=== PATIENT | male | born 1945 | race Caucasian/White ===

== ENCOUNTER 2020-03-20 12:31 | Outpatient (CLI) | payer OTHER | END 2020-03-20 12:41 | disposition home or self-care (01) | LOC: TOM 12:31 | PROVIDERS: ATTEND Urology | DX: N20.0 Calculus of kidney (principal); K40.90 Unilateral inguinal hernia, without obstruction or gangrene, not specified as recurrent; R31.21 Asymptomatic microscopic hematuria; K80.80 Other cholelithiasis without obstruction ==

== ENCOUNTER 2023-10-05 06:37 | Emergency (ER) | payer OTHER ==
[~2023-10-05] VITALS: Ht 177.8 cm; Wt 72.6 kg
[2023-10-05] MEDS ORDERED: ATACAND16 MG PO (07:23)
[2023-10-05] MEDS ORDERED: 0.9 % SODIUM CHLORIDE 1,000 ML IV ONE (09:00)
[2023-10-05] MEDS ORDERED: FAMOtidine 10 MG/ML (4ML VIAL) IV ONE (09:00)
[2023-10-05] MEDS ORDERED: ONDANSETRON HCL 2 MG/ML VIAL IV ONE (09:00)
[2023-10-05] MEDS ORDERED: MORPHINE SULFATE 4 MG/ML VIAL IV ONE (09:00)
[2023-10-05] MEDS ORDERED: FAMOTIDINE/PF 20 MG/2 ML VIAL ONE (09:05)
[2023-10-05] MEDS ORDERED: ONDANSETRON HCL 2 MG/ML VIAL ONE (09:05)
[2023-10-05 09:51] LABS: AMYLASE 57 U/L (25-115); LIPASE 41 U/L (13-75)
[2023-10-05 09:55] LABS: PARTIAL THROMBOPLASTIN TIME 29.5 SECONDS (22.0-34.0); PROTHROMBIN TIME 10.5 SECONDS (9.0-11.5)
[2023-10-05 09:57] LABS: ALBUMIN 4.2 gm/dL (3.4-5.0); BILIRUBIN TOTAL 1.85 mg/dL (0.3-1.2); CALCIUM 9.8 mg/dL (8.5-10.1); CREATININE SERUM 1.65 mg/dL (0.70-1.30); GFR 40.55; GLOBULINA 4.7 G/DL (2.4-3.5); POTASSIUM 3.84 mEq/L (3.5-5.1); TOTAL PROTEIN 8.9 gm/dL (6.4-8.2)
[2023-10-05 10:04] LABS: HEMATOCRIT 50.7 % (39.0-48.0); HEMOGLOBIN 17.6 g/dL (13-16.00); MEAN CELL VOLUME 91.4 fL (80.0-100.00); MEAN CORPUSCULAR HEMOGLOBIN 31.6 pg (27.00-32.0); MEAN CORPUSCULAR HGB CONC 34.6 g/dl (32.0-36.0); PLATELET COUNT 220 K/uL (150-450); RED BLOOD COUNT 5.55 M/uL (4.00-6.00); RED CELL DISTRIBUTION WIDTH 13.4 % (11.5-14.5)
[2023-10-05 11:52] LABS: URINE APPEARANCE Clear; URINE BILIRRUBIN Negative (NEGATIVE); URINE BLOOD Trace; URINE COLOR Yellow; URINE GLUCOSE Negative (NEGATIVE); URINE KETONE 15 (NEGATIVE); URINE LEUKOCYTE Negative; URINE NITRATE Negative
[2023-10-05 11:56] LABS: URINE BACTERIA 12.5 uL (0.0-1933); URINE CAST 1.67 uL (0.0-1.40); URINE EPITHELIAL CELLS 7.2 uL (0.0-38.8); URINE RBC 13.1 uL (0.0-20.8); URINE WBC 7.7 uL (0.0-23.2)
[2023-10-05 12:32] LABS: URINE PROTEIN 100 (NEGATIVE)
[2023-10-05] MEDS ORDERED: KETO10TA2 PO (12:56)
== END 2023-10-05 13:07 | disposition home or self-care (01) ==
LOC: ER 06:38
PROVIDERS: General Practice
DX: R10.32 Left lower quadrant pain (principal); R10.9 Unspecified abdominal pain; I10 Essential (primary) hypertension; Z91.041 Radiographic dye allergy status
CPT/HCPCS: 36415; 74176; 96365; 99284; J2270; J2405; J3490; J7030

== ENCOUNTER 2023-11-04 13:21 | Outpatient (CLI) | payer OTHER ==
[~2023-11-04 13:21] MED LIST: ATACAND16 MG PO; KETO10TA2 PO
== END 2023-11-04 13:22 | disposition home or self-care (01) ==
LOC: RAD 13:21
PROVIDERS: ATTEND Urology
DX: N20.0 Calculus of kidney (principal)

== ENCOUNTER 2024-02-24 18:01 | Inpatient (IN) | payer OTHER ==
[~2024-02-24] VITALS: Ht 170.2 cm; Wt 81.6 kg
[2024-02-24 19:22] LABS: HEMATOCRIT 46.4 % (39.0-48.0); HEMOGLOBIN 15.8 g/dL (13-16.00); MEAN CELL VOLUME 90.2 fL (80.0-100.00); MEAN CORPUSCULAR HEMOGLOBIN 30.8 pg (27.00-32.0); MEAN CORPUSCULAR HGB CONC 34.1 g/dl (32.0-36.0); PLATELET COUNT 236 K/uL (150-450); RED BLOOD COUNT 5.14 M/uL (4.00-6.00); RED CELL DISTRIBUTION WIDTH 14.6 % (11.5-14.5)
[2024-02-24 19:28] LABS: INR 1.11; PARTIAL THROMBOPLASTIN TIME 29.4 SECONDS (22.0-34.0)
[2024-02-24 20:05] LABS: URIC ACID 12.4 mg/dL (3.5-8.5)
[2024-02-24 20:10] LABS: CALCIUM 9.1 mg/dL (8.5-10.1); CHOL HDL RATIO 2.5 (0-5.0); CREATININE SERUM 2.14 mg/dL (0.70-1.30); GFR 30.04; MAGNESIUM 2.4 mg/dL (1.8-2.4); POTASSIUM 4.77 mEq/L (3.5-5.1)
[2024-02-24] MEDS ORDERED: CEFTRIAXONE SODIUM 1,000 MG VIAL IV ONE (20:15)
[2024-02-24 20:51] LABS: DIGOXIN 0.3 ng/ml (0.8-2.0)
[2024-02-24] MEDS ORDERED: LEVALBUTEROL HCL 1.25 MG/3 ML SOLUTION IH SCH (22:30)
[2024-02-24] MEDS ORDERED: 0.9 % SODIUM CHLORIDE 1,000 ML IV SCH (22:30)
[2024-02-24] MEDS ORDERED: 0.9 % SODIUM CHLORIDE 500 ML IV ONE (22:45)
[2024-02-24] MEDS ORDERED: ACETAMINOPHEN 500 MG GEL..CAP PO PRN (22:45)
[2024-02-24] MEDS ORDERED: ONDANSETRON HCL 4 MG in 0.9 % SODIUM CHLORIDE 50 ML IV PRN (22:45)
[2024-02-25] VITALS (11 sets, daily range): BP systolic 117–162; BP diastolic 62–94; O2SAT 86–97
[2024-02-25] MEDS ORDERED: IPRATROPIUM BROMIDE 0.5 MG/2.5 ML AMPUL.NEB IH SCH
[2024-02-25] MEDS ORDERED: PIPERACILLIN/TAZOBACTAM SODIUM 2.25 GM in DEXTROSE 5 % IN WATER 50 ML IV SCH
[2024-02-25] MEDS ORDERED: DIPHENHYDRAMINE HCL 50 MG/ML VIAL 1ML IM ONE (00:15)
[2024-02-25] MEDS ORDERED: LEVALBUTEROL HCL 1.25 MG/3 ML SOLUTION IH ONE ×2 (02:23→10:28)
[2024-02-25] MEDS ORDERED: IPRATROPIUM BROMIDE 0.5 MG/2.5 ML AMPUL.NEB IH ONE (02:24)
[2024-02-25] MEDS ORDERED: ENOXAPARIN SODIUM 40 MG/0.4 ML SYRINGE SUBCUTANEO SCH (09:00)
[2024-02-25] MEDS ORDERED: PANTOPRAZOLE SODIUM 40 MG/VIAL VIAL IV SCH (09:00)
[2024-02-25 12:55] LABS: HEMATOCRIT 46.1 % (39.0-48.0); HEMOGLOBIN 15.9 g/dL (13-16.00); MEAN CELL VOLUME 90.1 fL (80.0-100.00); MEAN CORPUSCULAR HEMOGLOBIN 31.2 pg (27.00-32.0); MEAN CORPUSCULAR HGB CONC 34.6 g/dl (32.0-36.0); PLATELET COUNT 188 K/uL (150-450); RED BLOOD COUNT 5.11 M/uL (4.00-6.00); RED CELL DISTRIBUTION WIDTH 14.6 % (11.5-14.5)
[2024-02-25 13:28] LABS: ALBUMIN 3.2 gm/dL (3.4-5.0); BILIRUBIN TOTAL 0.68 mg/dL (0.3-1.2); CALCIUM 9.1 mg/dL (8.5-10.1); CREATININE SERUM 1.84 mg/dL (0.70-1.30); GFR 35.75; GLOBULINA 4.8 G/DL (2.4-3.5); POTASSIUM 3.59 mEq/L (3.5-5.1)
[2024-02-25] MEDS ORDERED: CEFTRIAXONE SODIUM 1,000 MG VIAL ONE (16:12)
[2024-02-25] MEDS ORDERED: AZITHROMYCIN 500 MG VIAL IV SCH (17:00)
[2024-02-25] MEDS ORDERED: CEFTRIAXONE SODIUM 1,000 MG in 0.9 % SODIUM CHLORIDE 100 ML IV SCH (17:00)
[2024-02-25 19:13] LABS: URINE APPEARANCE Cloudy; URINE BILIRRUBIN Negative (NEGATIVE); URINE BLOOD Large; URINE COLOR Yellow; URINE KETONE Negative (NEGATIVE); URINE LEUKOCYTE Moderate; URINE NITRATE Positive; URINE UROBILINOGEN 0.2 E.U./dl
[2024-02-25 19:18] LABS: URINE BACTERIA 308.4 uL (0.0-1933); URINE EPITHELIAL CELLS 66.6 uL (0.0-38.8); URINE RBC 85.5 uL (0.0-20.8); URINE WBC 269.7 uL (0.0-23.2)
[2024-02-25 19:27] LABS: URINE GLUCOSE 100 MG/DL (NEGATIVE); URINE PROTEIN 100 (NEGATIVE)
[2024-02-26] VITALS (7 sets, daily range): BP systolic 116–151; BP diastolic 76–93; O2SAT 89–99
[2024-02-26 06:45] LABS: HEMOGLOBIN 14.8 g/dL (13-16.00); MEAN CELL VOLUME 88.8 fL (80.0-100.00); MEAN CORPUSCULAR HEMOGLOBIN 31.3 pg (27.00-32.0); MEAN CORPUSCULAR HGB CONC 35.3 g/dl (32.0-36.0); PLATELET COUNT 172 K/uL (150-450); RED BLOOD COUNT 4.73 M/uL (4.00-6.00); RED CELL DISTRIBUTION WIDTH 14.5 % (11.5-14.5)
[2024-02-26 07:33] LABS: CALCIUM 8.7 mg/dL (8.5-10.1); CREATININE SERUM 1.52 mg/dL (0.70-1.30); GFR 44.57; POTASSIUM 4.35 mEq/L (3.5-5.1)
[2024-02-26] MEDS ORDERED: ENOXAPARIN SODIUM 30 MG/0.3 ML SYRINGE SUBCUTANEO SCH (09:00)
[2024-02-26 12:11] LABS: ALBUMIN 3.3 gm/dL (3.4-5.0); BILIRUBIN TOTAL 0.57 mg/dL (0.3-1.2); BILIRUBIN,CONJUGATED 0.16 mg/dL (0.0-0.2); BILIRUBIN,UNCONJUGATED 0.41 mg/dL (0.0-0.6); TOTAL PROTEIN 7.4 gm/dL (6.4-8.2)
[2024-02-26] MEDS ORDERED: AZITHROMYCIN 500 MG VIAL IV ONE (16:03)
[2024-02-26] MEDS ORDERED: AMLODIPINE BESYLATE 5 MG TABLET PO SCH (17:00)
[2024-02-26] MEDS ORDERED: IPRATROPIUM BROMIDE 0.5 MG/2.5 ML AMPUL.NEB IH ONE (21:58)
[2024-02-26] MEDS ORDERED: LEVALBUTEROL HCL 1.25 MG/3 ML SOLUTION IH ONE (21:58)
[2024-02-27 02:49] VITALS: O2SAT 92
[2024-02-27 08:35] VITALS: BP 159/83; O2SAT 98
[2024-02-27] MEDS ORDERED: PANTOPRAZOLE SODIUM 40 MG TABLET.DR PO SCH (09:00)
[2024-02-27 10:08] LABS: hav igm Negative (Negative); hcv Non Reactive (Non Reactive); hep b c Negative (Negative); hep b s ag Negative (Negative)
== END 2024-02-27 12:08 | disposition home or self-care (01) | DRG 871 ==
LOC: ER 18:01 → ICU-2 22:35 → MEDJ 02-25 16:06 → MEDI 02-25 16:55
PROVIDERS: Emergency Medicine; Internal Medicine Infectious Disease; Student in an Organized Health Care Education/Training Program; ADMIT Internal Medicine; ATTEND Internal Medicine
PROC: BW28ZZZ Computerized Tomography (CT Scan) of Head (ICD-10-PCS; principal; 2024-02-24)
PROC: BW21ZZZ Computerized Tomography (CT Scan) of Abdomen and Pelvis (ICD-10-PCS; 2024-02-24)
PROC: BB24ZZZ Computerized Tomography (CT Scan) of Bilateral Lungs (ICD-10-PCS; 2024-02-24)
PROC: BW40ZZZ Ultrasonography of Abdomen (ICD-10-PCS; 2024-02-25)
PROC: B345ZZZ Ultrasonography of Bilateral Common Carotid Arteries (ICD-10-PCS; 2024-02-25)
PROC: B246ZZZ Ultrasonography of Right and Left Heart (ICD-10-PCS; 2024-02-25)
PROC: 3E0F7GC Introduction of Other Therapeutic Substance into Respiratory Tract, Via Natural or Artificial Opening (ICD-10-PCS; 2024-02-25)
PROC: 4A12X4Z Monitoring of Cardiac Electrical Activity, External Approach (ICD-10-PCS; 2024-02-26)
DX: A41.9 Sepsis, unspecified organism (principal); J18.9 Pneumonia, unspecified organism; J91.8 Pleural effusion in other conditions classified elsewhere; N17.8 Other acute kidney failure; N39.0 Urinary tract infection, site not specified; R09.02 Hypoxemia; I10 Essential (primary) hypertension

== ENCOUNTER 2024-10-20 07:00 | Day surgery (SDC) | payer OTHER ==
[2024-10-15 11:54] VITALS: BP 163/85
[2024-10-15 12:20] LABS: BASO % 0.6 % (0.1-1.2); EOS # 0.12 (0.04-0.54); EOS % 1.4 % (0.7-7.0); LYMPH # 2.12 (1.18-3.74); LYMPH % 25.4 % (19.3-53.1); MEAN PLATELET VOLUME 11.00 fl (9.4-12.4); MONO # 0.92 (0.24-0.82); MONO % 11.0 % (4.7-12.5); NEUT # 5.10 (1.56-6.13); NEUT % 61.0 % (34.0-71.1); RED CELL DISTRIBUTION WIDTH 12.6 % (11.6-14.4)
[2024-10-15 12:21] LABS: URINE APPEARANCE Clear; URINE BILIRRUBIN Negative (NEGATIVE); URINE BLOOD Negative; URINE COLOR Yellow; URINE GLUCOSE Negative (NEGATIVE); URINE KETONE Trace (NEGATIVE); URINE LEUKOCYTE Negative; URINE NITRATE Negative; URINE PROTEIN Trace (NEGATIVE); URINE UROBILINOGEN 1.0 E.U./dl
[2024-10-15 12:24] LABS: URINE RBC 5.1 uL (0.0-20.8); URINE WBC 4.4 uL (0.0-23.2)
[2024-10-15 12:34] LABS: URINE BACTERIA 3.5 uL (0.0-1933); URINE CAST 0.14 uL (0.0-1.40); URINE EPITHELIAL CELLS 0.6 uL (0.0-38.8)
[2024-10-15 12:47] LABS: ALT/SGPT 20.0 U/L (12-78); AST/SGOT 16.0 U/L (15-37); BILIRUBIN TOTAL 0.9 mg/dL (0.3-1.2); BILIRUBIN,CONJUGATED 0.17 mg/dL (0.0-0.2); BUN CREA RATIO 11.0 (7.0-25.0); CREATININE SERUM 1.38 mg/dL (0.70-1.30); GFR 49.7; GLUCOSE FASTING 70.0 mg/dL (65-100); OSMOLALITY SERUM 284.0 MOSM/KG (275-295)
[2024-10-15 12:59] LABS: INR 1.02
[~2024-10-20] VITALS: Ht 177.8 cm; Wt 79.4 kg
[2024-10-20] MEDS ORDERED: METRONIDAZOLE/SODIUM CHLORIDE 500 MG/100 ML PIGGYBACK IV ONE ×2 (07:29→10:45)
[2024-10-20] MEDS ORDERED: CEFTRIAXONE SODIUM 2,000 MG VIAL IV ONE (10:45)
[2024-10-20] MEDS ORDERED: BUPIVACAINE HCL 30 ML VIAL IJ ONE (10:45)
[2024-10-20] MEDS ORDERED: ENOXAPARIN SODIUM 40 MG/0.4 ML SYRINGE SUBCUTANEO ONE (10:45)
[2024-10-20] MEDS ORDERED: SUGAMMADEX SODIUM 200 MG/2 ML VIAL IV ONE ×2 (10:54→11:15)
[2024-10-20] MEDS ORDERED: NEURONTIN300 MG PO (11:46)
[2024-10-20] MEDS ORDERED: POLY119PG PO (11:46)
[2024-10-20] MEDS ORDERED: PERCOCET 5-3251 EACH PO (11:46)
[2024-10-20] MEDS ORDERED: CELEBREX200MG PO (11:46)
== END 2024-10-20 15:55 | disposition home or self-care (01) ==
LOC: CIR.AMB 07:00
PROVIDERS: ATTEND Surgery
DX: K40.91 Unilateral inguinal hernia, without obstruction or gangrene, recurrent (principal)
CPT/HCPCS: 49651; C1781